=== PATIENT | male | born 1970 | race Caucasian/White ===

== ENCOUNTER → 2017-03-12 | Outpatient (CLI) | payer BC ==
[2017-03-12 06:43] LABS: HEMOGLOBIN A1C 8.09 % (4.2-6.0)
[2017-03-12 06:47] LABS: CHOL/HDL RATIO 5.3 RATIO (0-4.0); LDL CHOLESTEROL,CALCULATED 75.4 mg/dL
[2017-03-12 06:48] LABS: BLOOD UREA NITROGEN 12 mg/dL (7-22); CALCIUM 9.1 mg/dL (8.7-10.7); EST GLOMERULAR FILTRATION > 60 (>60 ml/min/1.73m(2)); SERUM ALBUMIN 4.3 g/dL (3.5-4.8)
== END ==
LOC: LAB 06:23
PROVIDERS: ATTEND Family Medicine
DX: E11.9 Type 2 diabetes mellitus without complications (principal); Z79.4 Long term (current) use of insulin; E78.4 Other hyperlipidemia; F17.200 Nicotine dependence, unspecified, uncomplicated
CPT/HCPCS: 36415; 80053; 80061; 83036

== ENCOUNTER 2017-07-05 10:55 | Day surgery (SDC) | payer BC ==
[2017-07-05] MEDS ORDERED: LIDOCAINE W/ SODIUM BICARB 0.5 ML SYR ONE (10:58)
[2017-07-05] MEDS ORDERED: Lactated Ringers 1,000 ML PRIMARY IV ONE (10:58)
--- NOTE | 2017-07-05 11:14 | MINORPROC ---
Outpatient History & Physical Chief Complaint: Perineal abscess Present Illness: Patient has developed another abscess his perineum. He's been on antibiotics. It has progressed and now needs be opened Past History: Diabetes; previous abscesses; asthma History: General: WNL, HEENT: WNL, Respiratory: WNL, Cardiovascular: WNL, Genitourinary: ABN (has an abscess) Physical Exam: General: WNL, Chest/Lungs: WNL, Heart: WNL, Rectal: ABN (patient has a large perineal abscess on the right) Home Medications: Home Medications Medication Instructions Recorded Confirmed Type Oxygen (O2) 1 unit INH BEDTIME #2 unit 03/11/15 12/06/15 History Albuterol Sulfate [Albuterol Neb 1 unit NEB QID #1 box 12/22/15 Clinic Soln] Aspirin 81 mg PO DAILY #30 tab 12/22/15 Clinic Olopatadine HCl [Pataday] 1 drop EACH EYE DAILY #1 drop 02/10/16 Clinic Cpap 1 unit #1 unit 04/19/16 History Pen Needle, Diabetic, Safety 1 each MC QD #100 unit 04/19/16 Clinic [Autoshield Duo Pen Needle] Fenofibrate Nanocrystallized 48 mg PO DAILY #30 tab 07/13/16 Clinic [Tricor] Ipratropium [place] [Atrovent] 1 spr INASL QD #1 spr 08/31/16 Clinic Metformin HCl 1 tab PO BID #180 tab 10/01/16 Clinic Syr W-Ndl,Ins 0.3 ml Half Ketan 1 each MC BID #100 each 11/29/16 Clinic [Insulin Syringe] Lisinopril 1 tab PO DAILY #30 tab 01/09/17 Clinic Empagliflozin/Linagliptin 1 each PO QD #30 tab 03/21/17 Clinic [Glyxambi 25 Mg-5 Mg Tablet] Insulin Glargine SoloStar Inj 35 unit SUBCUT QD #1 vial 03/21/17 Clinic [Lantus Solostar Inj] Montelukast Sodium [Singulair] 1 tab PO DAILY #30 tab 03/21/17 Clinic Pravastatin Sodium 1 tab PO DAILY #30 tab 04/04/17 Clinic Albuterol Sulfate [Ventolin Hfa] 1 - 2 puff INH Q4-6H #1 puff 05/07/17 Clinic Cyclobenzaprine HCl 10 mg PO TID #30 tab 06/12/17 Clinic Fluticasone/Vilanterol [Breo 1 puff INH DAILY #30 puff 06/12/17 Clinic Ellipta 100-25 Mcg Inh] Doxycycline Hyclate 1 cap PO BID #28 cap 07/03/17 Clinic Allergies/Adverse Reactions: Allergies Allergy/AdvReac Type Severity Reaction Status Date / Time CRAWFISH Allergy Mild RASH Uncoded 07/09/14 09:17 RAGU Allergy Mild RASH Uncoded 07/09/14 09:17 Impression / Plan: Perineal abscess Will need I&D. Patient says risks benefits. Anesthesia Plans: Sedation ASA Class: Class 3 : Severe Systemic Disease Under Control
[2017-07-05] MEDS ORDERED: KETAMINE 100 MG/1 ML - 5 ML ONE (11:42)
[2017-07-05] MEDS ORDERED: fentaNYL Inj 100 MCG/2 ML VIAL ONE (11:42)
[2017-07-05] MEDS ORDERED: MIDAZOLAM 5 MG/1 ML ONE (11:42)
[2017-07-05 12:05] LABS: HEMATOCRIT 45.2 % (42.0-52.0); HEMOGLOBIN 15.3 g/dL (14.0-18.0); MEAN CORPUSCULAR HEMOGLOBIN 30.2 PG (27-31); MEAN CORPUSCULAR HGB CONC 33.8 g/dL (33-37); MEAN CORPUSCULAR VOLUME 89.3 FL (80-90); MEAN PLATELET VOLUME 10.7 FL (7.4-12.2); RED BLOOD COUNT 5.06 10^6/uL (4.70-6.10)
[2017-07-05] MEDS ORDERED: LIDOCAINE HCL 1%/EPI 1:100,000 - 20 ML VIAL ONE (12:17)
--- NOTE | 2017-07-05 12:50 | GEN.OPNOTE ---
Operative Note Surgery Date: 07/05/17 Preoperative Diagnosis: Abscess right upper thigh Postoperative Diagnosis: Abscess a right upper thigh complex Procedure: I&D of a complex abscess Surgeon: King Laureano MD Anesthesia Provider: Kaur Sood CRNA Anesthesia Type: Local, MAC Estimated Blood Loss (mL): 25 Fluids: Please see anesthesia notes in EMR Pathology: Anaerobic and aerobic Cultures obtained Indications: This is a gentleman is developed an abscess of the upper thigh initial look inside my been a perineal abscess. But after getting sedated adequate examination abscess actually originated from the upper inner thigh and dissected towards the perineum Findings: Abscess with multiple loculations Operative Summary: Patient is brought in operative room. Given IV sedation. Placed in dorsolithotomy position. Prepped draped sterile fashion. Timeout performed per protocols. I infiltrated 1% Xylocaine with epinephrine for local anesthetic a total 5 mL was used. I then made a skin incision overlying the abscess cavity. This point we got purulent material proximal be 30-40 mL out. Cultures were obtained. I then extended my incision cephalad and caudal to open up the entire abscess cavity. They use a finger and hemostats to break up all loculations. This is a multiloculated abscess cavity. These gentle pressure to hold for hemostasis. I then packed the wound with Multidex and gauze. Patient tolerated procedure well the were no complications.
[2017-07-05] MEDS ORDERED: HYDROcodone-APAP 7.5 MG-325 MG TABLET PO ONE (12:51)
[2017-07-05] MEDS ORDERED: HYDROcodone-APAP 5 MG -325 MG TABLET PO PRN (12:55)
[2017-07-05 15:00] VITALS: TEMP 98.9
[2017-07-05 15:04] VITALS: RESP 16
== END 2017-07-05 13:45 | disposition home or self-care (01) ==
LOC: SDSC 10:55
PROVIDERS: ATTEND Surgery
DX: L02.415 Cutaneous abscess of right lower limb (principal)
CPT/HCPCS: 27301; 85027; 87070; J2250; J3010; J7120